=== PATIENT | male | born 1950 | race Caucasian/White ===

== ENCOUNTER 2017-12-17 11:53 | Observation (INO) ==
[2017-12-17] MEDS ORDERED: chlorproMAZINE 25 MG TABLET PO PRN (13:48)
[2017-12-17] MEDS ORDERED: PROMETHAZINE INJ 25 MG in SODIUM CHLORIDE 0.9% 50 ML IV PRN (13:48)
[2017-12-17] MEDS ORDERED: traMADol 50 MG TABLET PO PRN ×2 (13:48→13:53)
[2017-12-17] MEDS ORDERED: BENZTROPINE 2 MG/2 ML AMP IV PRN (13:48)
[2017-12-17] MEDS ORDERED: TEMAZEPAM 7.5 MG CAPSULE PO PRN (13:48)
[2017-12-17] MEDS ORDERED: LOPERAMIDE 2 MG CAPSULE PO PRN ×2 (13:48)
[2017-12-17] MEDS ORDERED: guaiFENesin 200 MG/10 ML UDCUP PO PRN (13:48)
[2017-12-17] MEDS ORDERED: MAGNESIUM HYDROXIDE SUSP 30 ML UDCUP PO PRN (13:48)
[2017-12-17] MEDS ORDERED: MYLANTA/LIDO VISC 2:1 300 ML BOTTLE SWISH/SPIT PRN (13:48)
[2017-12-17] MEDS ORDERED: chlorproMAZINE INJ 50 MG in SODIUM CHLORIDE 0.9% 100 ML IV PRN (13:48)
[2017-12-17] MEDS ORDERED: ONDANSETRON 4 MG/2 ML VIAL IV PRN (13:48)
[2017-12-17] MEDS ORDERED: ALPRAZolam 0.25 MG TABLET PO PRN (13:48)
[2017-12-17] MEDS ORDERED: ACETAMINOPHEN 325 MG TABLET PO PRN (13:48)
[2017-12-17] MEDS ORDERED: LACTULOSE 20 GM/30 ML UDCUP PO PRN (13:48)
[2017-12-17] MEDS ORDERED: diphenhydrAMINE CAP 25 MG CAPSULE PO PRN (13:48)
[2017-12-17] MEDS ORDERED: ALUMINUM/MAGNES/SIMETH MAX STR 30 ML UDCUP PO PRN (13:48)
[2017-12-17] MEDS ORDERED: MYLANTA/LIDO VISC 2:1 300 ML BOTTLE SWISH/SWAL PRN (13:48)
[2017-12-17] MEDS ORDERED: chlorproMAZINE INJ 25 MG in SODIUM CHLORIDE 0.9% 100 ML IV PRN (13:48)
[2017-12-17] MEDS ORDERED: ENOXAPARIN 40 MG/0.4 ML SYRINGE SUBCUT SCH (14:00)
[2017-12-17] MEDS: DEXTROSE 5% NACL 0.45% 1,000 ML IV SCH (15:36)
[2017-12-17] MEDS ORDERED: RASBURICASE IV ONE (17:00)
[2017-12-17] MEDS ORDERED: SODIUM CHLORIDE 0.9% IV ONE (17:00)
[2017-12-17] MEDS ORDERED: TICAGRELOR 90 MG TABLET PO SCH (21:00)
[2017-12-17] MEDS ORDERED: traZODone 50 MG TABLET PO SCH (21:00)
[2017-12-18] MEDS: DEXTROSE 5% NACL 0.45% 1,000 ML IV SCH ×2 (00:08→08:05)
[2017-12-18 05:39] LABS: Hematocrit 32.5 VOL% (42.0-52.0); Hemoglobin 11.2 GM/DL (14.0-18.0); Immature Granulocytes % 4.2 %; Lymphocytes # 0.7 10*3/uL (1.4-4.0); Lymphocytes % 3.4 % (21.2-54.2); Mean Corpuscular HGB Conc 34.5 GM/DL (32-36); Mean Corpuscular Hemoglobin 30 PG (27-34); Mean Corpuscular Volume 85.5 FL (87-102); Monocytes # 0.9 10*3/uL (0.11-0.8); Neutrophils # 18.9 10*3/uL (1.4-7.4); Neutrophils % 88.4 % (38.7-73.9); Platelet Count 224 T/CUMM (130-400); Red Cell Distribution Width 12.6 % (9.3-17.3); White Blood Count 21.3 T/CUMM (4-12)
[2017-12-18 06:24] LABS: Alanine Aminotransferase 15 U/L (16-61); Albumin 2.8 G/DL (3.4-5.0); Alkaline Phosphatase 67 U/L (45-117); Aspartate Amino Transferase 21 U/L (0-37); Band Neutrophils 7 % (0-10); Blood Urea Nitrogen 31 MG/DL (7-18); Glucose 341 MG/DL (74-106); Lymphocytes 9 % (20-55); Osmolality,Calculated 296.5 MOS/KG (273-304); Platelet Estimate Normal; Potassium 3.1 MMOL/L (3.5-5.1); Segmented Neutrophils 84 % (50-85); Sodium 139 MMOL/L (136-145); Total Cells Counted 100; Total Protein 5.5 G/DL (6.4-8.3); Uric Acid < 0.2 MG/DL (3.5-7.2)
[2017-12-18] MEDS ORDERED: amLODIPine 5 MG TABLET PO SCH (09:00)
[2017-12-18] MEDS ORDERED: PANTOPRAZOLE 40 MG TABLET PO SCH (09:00)
[2017-12-18] MEDS ORDERED: ASPIRIN EC 81 MG TABLET PO SCH (09:00)
[2017-12-18] MEDS ORDERED: LOSARTAN/HCTZ 50-12.5 MG TABLET PO SCH (09:00)
[2017-12-18] MEDS ORDERED: ATORVASTATIN 10 MG TABLET PO SCH (09:00)
[2017-12-18 09:12] VITALS: BP 127/66
[2017-12-18] MEDS ORDERED: POTASSIUM CHLORIDE 20 MEQ TABLET PO ONE (10:11)
[2017-12-18] MEDS ORDERED: INSULIN REGULAR 100 UNIT/ML IV ONE (10:12)
[2017-12-18] MEDS ORDERED: INSULIN REGULAR 100 UNIT/ML ONE (10:50)
== END 2017-12-18 12:00 | disposition home or self-care (01) ==
LOC: N.4E
PROVIDERS: ADMIT Internal Medicine Hematology & Oncology; ATTEND Internal Medicine Hematology & Oncology